=== PATIENT | female | born 1955 | race American Indian/Alaskan Native ===

== ENCOUNTER 2016-04-24 04:32 | Inpatient (IN) | payer OTHER ==
[2016-04-24 05:29] LABS: Basophils % (Auto) 0.3 % (0.0-1.8); Eosinophils % (Auto) 0.9 % (0.0-4.3); Hematocrit 38.4 % (30.3-42.9); Hemoglobin 12.5 gm/dl (10.1-14.3); Mean Corpuscular HGB Conc 33 % (30-34); Mean Corpuscular Volume 80 fl (79-97); Platelet Count 275 K/mm3 (140-440); Red Blood Count 4.82 M/mm3 (3.65-5.03); Red Cell Distribution Width 13.8 % (13.2-15.2); White Blood Count 9.5 K/mm3 (4.5-11.0)
[2016-04-24 05:32] LABS: Mean Corpuscular Hemoglobin 26 pg (28-32)
[2016-04-24 05:48] LABS: Blood Urea Nitrogen 14 mg/dL (7-17); Calcium 8.4 mg/dL (8.4-10.2); Carbon Dioxide 23 mmol/L (22-30); Chloride 103.6 mmol/L (98-107); Glucose 96 mg/dL (65-100); Potassium 3.7 mmol/L (3.6-5.0); Sodium 140 mmol/L (137-145)
[2016-04-24 05:51] LABS: Anion Gap 17 mmol/L
[2016-04-24] MEDS ORDERED: ZOFRAN IV ONE (07:31)
[2016-04-24] MEDS ORDERED: MORPHINE IV ONE (07:31)
[2016-04-24] MEDS ORDERED: ASPIRIN PO ONE (07:31)
--- NOTE | 2016-04-24 07:43 | Emergency Department Report ---
ED Chest Pain HPI - General Chief Complaint: Chest Pain Stated Complaint: CHEST PAIN Time Seen by Provider: 04/24/16 07:18 Source: patient, EMS Mode of arrival: Stretcher Limitations: No Limitations - History of Present Illness Initial Comments: 60-year-old female presents to the emergency department complaining of chest pain. Patient reports the acute onset of midsternal chest pain this morning at approximately 3 AM. Patient states the pain woke her from sleep. Patient describes a sharp pain that does not radiate. Pain is constant but varies in intensity. She reports associated shortness of breath and lightheadedness. She denies diaphoresis or nausea. There are no other complaints. MD Complaint: chest pain -: Sudden, During the night Time: 03:00 Onset: during rest Pain Location: substernal Pain Radiation: none Severity scale (0 -10): 8 Quality: sharp Consistency: constant Improves With: nothing Worsens With: nothing re: dyspnea Treatments Prior to Arrival: none Aspirin use within the Past 7 Days: (0) No - Related Data Home Medications Medication Instructions Recorded Confirmed Last Taken No Known Home Medications [No 04/24/16 04/24/16 Unknown Reported Home Medications] Allergies Allergy/AdvReac Type Severity Reaction Status Date / Time meperidine HCl [From Demerol] Allergy Swelling Verified 04/24/16 05:13 ZONIA score - Zonia Score Age > 65: (0) No Aspirin use within the Past 7 Days: (0) No 3 or more CAD Risk Factors: (0) No 2 or more Angina events in past 24 hrs: (0) No Known CAD with more than 50% Stenosis: (0) No Elevated Cardiac Markers: (0) No ST Deviation Greater than 0.5mm: (0) No ZONIA Score: 0 ED Review of Systems ROS: Stated complaint: CHEST PAIN Other details as noted in HPI Comment: All other systems reviewed and negative Respiratory: shortness of breath Cardiovascular: chest pain, syncope (lightheadedness, no loss of consciousness) ED Past Medical Hx - Past Medical History Previous Medical History?: No - Surgical History Past Surgical History?: Yes Additional Surgical History: hystecrectomy. josé miguel vein ligation remove blood clot. hernia repair - Family History Family history: CAD/LA, cancer, hypertension - Social History Smoking Status: Never Smoker Substance Use Type: Alcohol - Medications Home Medications: Home Medications Medication Instructions Recorded Confirmed Last Taken Type No Known Home Medications [No 04/24/16 04/24/16 Unknown History Reported Home Medications] ED Physical Exam - General Limitations: No Limitations General appearance: alert, in distress (mild distress secondary to pain) - Head Head exam: Present: atraumatic, normocephalic - Eye Eye exam: Present: normal appearance, PERRL, EOMI - ENT ENT exam: Present: normal exam, normal orophraynx, mucous membranes moist - Neck Neck exam: Present: normal inspection, full ROM. Absent: tenderness - Respiratory Respiratory exam: Present: normal lung sounds bilaterally. Absent: respiratory distress, chest wall tenderness - Cardiovascular Cardiovascular Exam: Present: regular rate, normal rhythm, normal heart sounds - GI/Abdominal GI/Abdominal exam: Present: soft, normal bowel sounds. Absent: distended, tenderness - Extremities Exam Extremities exam: Present: normal inspection, full ROM. Absent: tenderness - Back Exam Back exam: Present: normal inspection, full ROM. Absent: tenderness - Neurological Exam Neurological exam: Present: alert, oriented X3. Absent: motor sensory deficit - Skin Skin exam: Present: warm, dry, intact ED Course Vital Signs 04/24/16 04/24/16 04/24/16 04:40 04:44 04:46 Temperature 98.5 F Pulse Rate 89 90 86 Respiratory 18 12 21 Rate Blood Pressure 117/70 O2 Sat by Pulse 99 98 Oximetry 04/24/16 04/24/16 04/24/16 05:01 05:07 05:10 Temperature Pulse Rate 79 70 Respiratory 14 14 18 Rate Blood Pressure 117/63 117/70 O2 Sat by Pulse 97 99 99 Oximetry 04/24/16 04/24/16 04/24/16 05:15 05:30 05:46 Temperature Pulse Rate 88 83 79 Respiratory 14 16 21 Rate Blood Pressure 117/70 116/78 116/77 O2 Sat by Pulse 97 93 Oximetry 04/24/16 04/24/16 04/24/16 06:00 06:16 06:30 Temperature Pulse Rate 91 H 92 H 88 Respiratory 21 14 19 Rate Blood Pressure 157/95 157/95 114/67 O2 Sat by Pulse 98 98 Oximetry 04/24/16 04/24/16 04/24/16 06:46 07:00 07:08 Temperature Pulse Rate 90 78 89 Respiratory 28 H 35 H 19 Rate Blood Pressure 114/67 121/62 121/62 O2 Sat by Pulse 96 95 99 Oximetry 04/24/16 04/24/16 04/24/16 07:10 07:16 07:17 Temperature Pulse Rate 82 77 73 Respiratory 27 H 28 H 35 H Rate Blood Pressure 121/62 121/69 121/69 O2 Sat by Pulse 97 94 100 Oximetry 04/24/16 04/24/16 07:30 08:00 Temperature Pulse Rate 91 H 83 Respiratory 25 H 18 Rate Blood Pressure 119/79 109/70 O2 Sat by Pulse 94 93 Oximetry ED Medical Decision Making - Lab Data Result diagrams: 04/24/16 05:21 04/24/16 05:21 - EKG Data -: EKG Interpreted by Sc EKG shows normal: sinus rhythm, axis Rate: normal - EKG Data When compared to previous EKG there are: previous EKG unavailable Interpretation: LVH (with repolarization abnormality), other (prolonged QT interval) - Medical Decision Making Lab results reviewed and discussed with the patient. Patient reports symptoms are improved with medication. Due to the patient's age and risk factors including obesity and family history, patient is to be admitted by the hospitalist for further cardiac evaluation. - Differential Diagnosis ACS, chest wall pain, GERD, esophageal spasm Critical care attestation.: If time is entered above; I have spent that time in minutes in the direct care of this critically ill patient, excluding procedure time. ED Disposition Clinical Impression: Chest pain Qualifiers: Chest pain type: precordial chest pain Qualified Code(s): R07.2 - Precordial pain Disposition: OP ADMITTED IP TO THIS HOSP Is pt being admited?: Yes Condition: Stable Instructions: Chest Pain (ED) Time of Disposition: 08:32
[2016-04-24] MEDS ORDERED: MORPHINE IV PRN (10:30)
[2016-04-24] MEDS ORDERED: NITROSTAT SL PRN (10:30)
[2016-04-24] MEDS ORDERED: LEXISCAN IV ONE ×2 (10:58→11:02)
[2016-04-24] MEDS ORDERED: SODIUM CHLORIDE FLUSH SYRINGE 10 ML IV PRN (11:00)
--- NOTE | 2016-04-24 12:47 | Treadmill Report ---
NUCLEAR STUDY REASON FOR STUDY: Chest pain. IMAGING PROTOCOL: The patient received 10 mCi of Technetium 99m Tetrofosmin for resting image and 28 mCi of Technetium 99m Tetrofosmin for stress imaging. The imaging for the whole procedure was completed 30-90 minutes following the initial injection of Technetium 99m tetrofosmin. The SPECT imaging in the 180 degree arc was performed in the right anterior oblique projection. Computerized reconstruction of the images was performed for analysis. IMAGING RESULTS: Cavity is dilated, both stress and rest. Distribution radionuclide is normal in the septal, lateral, apical anterior region, but moderately decreased in a moderate sized in the inferior region and inferoapical region, seen on both stress and rest. Gated SPECT, EF 20% with global severe hypokinesis. The patient infused Lexiscan with no EKG changes. SUMMARY: 1. Negative Lexiscan EKG. 2. No significant stress ischemia. 3. Dilated LV cavity with severe LV dysfunction, EF 20% with moderate sized, moderate intensity infarction in inferior, inferoapical region with normal perfusion in the septal, lateral, anterior and anterior apical region. We will clinically correlate. JOB# [id number] JESSE/JORDANA
--- NOTE | 2016-04-24 14:05 | Consultation ---
Addendum entered and electronically signed by YESSICA SPEAR MD 04/24/16 17:48: I have seen and examined the patient and agree with the documentation below. Original Note: History of Present Illness Consult date: 04/24/16 Requesting physician: ALISSON ROSALES Consult reason: chest pain History of present illness: The patient is a 60 year old female who presented with complaints of sudden onset precordial chest pain and shortness of breath that began this morning at 3 :00am. She states that the pain is sharp and had been constant but varies in intensity. She denies any nausea, vomiting or diaphoresis. However, she reports 2-3 pillow orthopnea over the past several years. She admits that she has not seen a doctor in approximately 4 years. Troponin negative x 2. Stress test this morning was negative for reversible ischemia but showed dilated LV cavity, EF 20 %. Echo done this morning revealed dilated cardiomyopathy, EF 20%, grade 2 diastolic dysfunction, severe MR. No previous diagnosis of heart failure or cardiomyopathy. Past History Past Medical History: other (pelvic vein thrombosis ~ 40 years ago) Past Surgical History: hysterectomy, hernia repair, Other (vein ligation ) Social history: (2 children). denies: smoking, alcohol abuse, prescription drug abuse, IV drug use Family history: no significant family history Medications and Allergies Allergies Allergy/AdvReac Type Severity Reaction Status Date / Time meperidine HCl [From Demerol] Allergy Swelling Verified 04/24/16 05:13 Home Medications Medication Instructions Recorded Confirmed Last Taken Type No Known Home Medications [No 04/24/16 04/24/16 Unknown History Reported Home Medications] Active Meds: Active Medications Aspirin (Aspirin) 325 mg PO QDAY LETI Famotidine (Pepcid) 20 mg PO BID LETI Morphine Sulfate (Morphine) 2 mg IV Q5MIN PRN PRN Reason: Chest Pain Nitroglycerin (Nitrostat) 0.4 mg SL Q5M PRN PRN Reason: Chest Pain Sodium Chloride (Sodium Chloride Flush Syringe 10 Ml) 10 ml IV PRN PRN PRN Reason: LINE FLUSH Review of Systems Constitutional: no fever, no chills Ears, nose, mouth and throat: no nasal congestion, no nasal discharge, no sinus pressure Cardiovascular: chest pain, orthopnea, shortness of breath, dyspnea on exertion Respiratory: shortness of breath, dyspnea on exertion, no cough, no congestion, no wheezing Gastrointestinal: no abdominal pain, no nausea, no vomiting, no diarrhea Genitourinary Female: no dysuria, no urgency Musculoskeletal: no neck stiffness, no neck pain, no myalgias Integumentary: no rash, no pruritis Neurological: no parathesias, no numbness, no tingling Endocrine: no cold intolerance, no heat intolerance Hematologic/Lymphatic: no easy bruising, no easy bleeding Allergic/Immunologic: no urticaria, no wheezing Physical Examination Vital Signs Temp Pulse Resp BP Pulse Ox 98.5 F 89 18 117/70 99 04/24/16 04:40 04/24/16 04:40 04/24/16 04:40 04/24/16 04:40 04/24/16 04:40 General appearance: no acute distress, obese HEENT: Positive: PERRL, Normocephaly, Mucus Membranes Moist Neck: Positive: neck supple, trachea midline Cardiac: Positive: Reg Rate and Rhythm, S1/S2 Lungs: Positive: clear to auscultation Neuro: Positive: Grossly Intact Abdomen: Positive: Soft, Active Bowel Sounds. Negative: Tender Skin: Positive: Clear. Negative: Rash Extremities: Present: normal, +1 Edema (bilateral lower legs) Results 04/24/16 05:21 04/24/16 05:21 - Imaging and Cardiology Echo: report reviewed (04/2016: dilated cardiomyopathy, EF 20%, severe MR) EKG: image reviewed EKG interpretations - Telemetry EKG Rhythm: Sinus Rhythm - EKG Sinus rhythms and dysrhythmias: sinus rhythm Chamber hypertrophy or enlargement: left ventricular hypertro Repolarization changes or abnormalities: repolarization abn secondary to ventricular hypertrophy Assessment and Plan Initiate low dose beta fay. Will add ACEI or ARB subsequently if and when BP permits. Will proceed with left heart cath in am for evaluation of cardiomyopathy. Risks, benefits and alternatives were discussed with the patient and she agrees to proceed. - Patient Problems (1) Acute on chronic combined systolic and diastolic heart failure Current Visit: Yes Status: Acute (2) Chest pain Current Visit: Yes Status: Acute Qualifiers: Chest pain type: precordial chest pain Qualified Code(s): R07.2 - Precordial pain (3) Cardiomyopathy Current Visit: Yes Status: Acute (4) Severe mitral regurgitation Current Visit: Yes Status: Acute (5) Obesity Current Visit: Yes Status: Chronic
[2016-04-24] MEDS: PEPCID PO SCH ×2 (14:06→21:33)
--- NOTE | 2016-04-24 14:59 | XRay Report ---
PORTABLE CHEST INDICATION: Heart failure. COMPARISON: None similar. FINDINGS: Portable, frontal chest radiograph demonstrate slight patient rotation to the left with borderline/slight cardiomegaly and somewhat congestive prominence of markings centrally and towards the bases possible. No large pleural effusions or cephalization however. EKG leads. Few bony degenerative changes, including mild thoracic dextroscoliosis. CONCLUSION: Borderline cardiomegaly and slight/early fluid overload possible without overt CHF, as detailed above. Please also correlate clinically and with prior chest imaging, if available. Thank you for the opportunity to participate in this patient's care.
[2016-04-24] MEDS ORDERED: NACL 0.9% 500 ML 500 ML IV SCH (15:00)
--- NOTE | 2016-04-24 15:09 | History and Physical Report ---
History of Present Illness Date of examination: 04/24/16 Date of admission: 04/24/16 08:33 Chief complaint: chest pain this morning about 2 a.m with sob History of present illness: Miss Aguero is a 60 yo F who presented to the ER with left sided chest pain and shortness of breath which started this morning about 2 a.m; she was not sleeping as she said that she was restless; no radiation; pressing in nature; lasted over 1 hour; also sob when she lays down which she said is not new and shw has been sleeping on several pillows for years; no leg swelling; no h/o cardiac disease; cough productive of yellow sputum but that has improved; palpitations Past History Past Medical History: No medical history, other (pelvic vein thrombosis ~ 40 years ago) Past Surgical History: hysterectomy, hernia repair, Other (vein ligation ) Social history: (2 children). denies: smoking, alcohol abuse, prescription drug abuse, IV drug use Family history: CAD, diabetes, hypertension Medications and Allergies Allergies Allergy/AdvReac Type Severity Reaction Status Date / Time meperidine HCl [From Demerol] Allergy Swelling Verified 04/24/16 05:13 Home Medications Medication Instructions Recorded Confirmed Last Taken Type No Known Home Medications [No 04/24/16 04/24/16 Unknown History Reported Home Medications] Active Meds: Active Medications Aspirin (Aspirin) 325 mg PO QDAY LETI Carvedilol (Coreg) 3.125 mg PO BID [facility] Famotidine (Pepcid) 20 mg PO BID [facility] Last Admin: 04/24/16 14:06 Dose: 20 mg Sodium Chloride (Nacl 0.9% 500 Ml) 500 mls @ 50 mls/hr IV DIRECT LETI Stop: 04/25/16 00:59 Morphine Sulfate (Morphine) 2 mg IV Q5MIN PRN PRN Reason: Chest Pain Nitroglycerin (Nitrostat) 0.4 mg SL Q5M PRN PRN Reason: Chest Pain Sodium Chloride (Sodium Chloride Flush Syringe 10 Ml) 10 ml IV PRN PRN PRN Reason: LINE FLUSH Review of Systems All systems: negative Constitutional: no weight loss, no weight gain, no fever, no chills, no sweats, no night sweats Ears, nose, mouth and throat: no ear pain, no ear discharge, no tinnitis, no decreased hearing, no nose pain Breasts: normal Cardiovascular: other (as in the [facility]) Respiratory: cough with sputum, no excessive sputum, no hemoptysis, no shortness of breath, no dyspnea on exertion Gastrointestinal: no abdominal pain, no nausea, no vomiting Genitourinary Female: no dyspareunia, no dysmenorrhea, no pelvic pain, no menorrhagia Menstruation: no currently menstrual, no premenarcheal, no post hysterectomy, no ammenorrhea Musculoskeletal: no neck stiffness, no neck pain, no shooting arm pain Integumentary: no rash, no pruritis, no redness Neurological: no head injury, no transient paralysis, no paralysis, no weakness Psychiatric: no anxiety, no memory loss, no change in sleep habits, no change in libido Endocrine: no cold intolerance, no heat intolerance Hematologic/Lymphatic: no easy bruising, no easy bleeding Allergic/Immunologic: no urticaria, no allergic rhinitis Exam - Constitutional Vitals: Temp Pulse Resp BP Pulse Ox 98.5 F 79 26 H 114/77 97 04/24/16 04:40 04/24/16 11:49 04/24/16 09:00 04/24/16 11:49 04/24/16 09:00 General appearance: Present: no acute distress, well-nourished - EENT Eyes: Present: PERRL, EOM intact. Absent: scleral icterus, conjunctival injection ENT: hearing intact, clear oral mucosa, no oropharyngeal erythema, no poor dentition - Neck Neck: Present: supple, normal ROM. Absent: enlarged thyroid, masses or JVD - Respiratory Respiratory effort: normal Respiratory: bilateral: diminished, rales (bases), negative: rhonchi, wheezing - Cardiovascular Rhythm: regular Heart Sounds: Present: S1 & S2. Absent: gallop - Extremities Extremities: no ischemia, pulses intact, pulses symmetrical, No edema, normal temperature Peripheral Pulses: within normal limits - Abdominal General gastrointestinal: Present: soft, non-tender, non-distended - Rectal Rectal Exam: deferred - Integumentary Integumentary: Present: clear - Musculoskeletal Musculoskeletal: strength equal bilaterally - Psychiatric Psychiatric: appropriate mood/affect, intact judgment & insight - Neurologic Neurologic: CNII-XII intact, moves all extremities Results - Labs CBC & Chem 7: 04/24/16 05:21 04/24/16 05:21 Labs: stress test- no stress ischemia; dilated LV with EF 20 % with moderate sized intensity infarction in the inferior and inferior apical region wiht normal perfusion in the septal; lateral, anterior and anterior apical region - Imaging and Cardiology Chest x-ray: report reviewed (Chest [id number] cardiomegaly and/S early fluid overload possible without overt CHF) Assessment and Plan 1. Atypical chest pain-admit as an inpatient as more than 2 midnights are required for treatment, myocardial infarction ruled out based on negative cardiac enzymes; cardiogram ordered and reviewed. Stress test ordered and reviewed 2. Abnormal stress test-cardiology consult appreciated. Patient is for cardiac catheterization in the morning 3. Newly diagnosed cardiomyopathy with systolic dysfunction with mild acute exacerbation of systolic heart failure-we'll start patient on IV Lasix, will add beta fay and DANIS inhibitor if blood pressure is able to remain stable with diuresis 4. DVT prophylaxis-Lovenox
[2016-04-24] MEDS ORDERED: LASIX IV ONE (15:15)
--- NOTE | 2016-04-24 15:47 | Admit Criteria Form ---
Admission Criteria Documentation: CHEST PAIN Clinical Indications for Admission to Inpatient Care (Place 'X' for any and all applicable criteria): Admission is indicated for chest pain and ANY ONE of the following(1)(2)(3)(4)(5 ): [ ]I. Angina with acute coronary syndrome (Also use Myocardial Infarction or Angina guideline) [ ]II. Hemodynamic instability [X ]III. Angina needing acute intervention as indicated by ALL of the following (11)(12): [ X]a) Unstable angina is present as indicated by angina that is ANY ONE of the following: [X ]i) New onset [ ]ii) Nocturnal [ ]iii) Prolonged at rest [ ]iv) Progressive [X ]b) Angina warrants acute intervention as indicated by ANY ONE of the following: [ ]i) Recurrent angina (e.g, not responding as previously to treatment) [ ]ii) Angina at rest or with low-level activities despite initial medical therapy [ ]iii) New or presumably new ST-segment depression on ECG [ ]iv) Signs or symptoms of heart failure (eg, dyspnea, pulmonary edema) [ ]v) New or worsening mitral regurgitation [ ]vi) Hemodynamic instability [ ]vii) Dangerous arrhythmia (eg, sustained ventricular tachycardia) [ ]viii) History of percutaneous coronary intervention within 6 months [ ]ix) History of coronary artery bypass graft surgery [ ]x) ZONIA risk score of 2 or greater[A] [ ]xi) History of Diabetes(14) [ ]xii) High-risk cardiac ischemia findings on noninvasive testing (e.g, echocardiogram, treadmill testing, nuclear scan) [ ]xiii) Chronic renal insufficiency (ie, estimated GFR less than 60 mL/min/1.732m) [X ]xiv) Left ventricular ejection fraction less than 40% [ ]IV. Evidence of ME (eg, cardiac biomarkers positive, ST-segment elevation on ECG) also use Myocardial Infarction Criteria Form. [ ]V. Pulmonary edema [ ]. Respiratory distress [ ]VII. Chest pain indicative of serious diagnosis other than coronary artery disease (eg, aortic dissection) [ ]VIII. Contraindications and/or Inappropriate clinical situations for Observational Care in patients with Chest Pain, when ANY ONE of the following is required: [ ]a) Patient with risk factor for pulmonary embolism, acute coronary syndrome and myocardial infarction (18) [ ]b) Patient with Pulmonary embolism require an average LOS of 4.3 days, therefore emergency department observation management is inappropriate 18,23 [ ]c) Painful condition/s in the elderly, have the highest rate of recidivism after emergency department observation management (10.8%) 20,21,22 [ ]d) Elevated cardiac biomarker requires intensive and exhaustive care (19) [ ]IX. General contraindications and/or Inappropriate clinical situations for Observational Care in patients with Chest Pain, when ANY ONE of the following is required: [ ]a) Prediction of prolongation of LOS based on ANY ONE of the following may be considered as a contraindication for observational care 2, 3, 4, 5, 6, 7, 8, 9, 10, 11 [ ]i) Age > 65 yrs. [ ]ii) Patient arriving by ambulance [ ]iii) Patient with high acuity [ ]iv) Patient requiring vital sign monitoring [ ]v) Patient on IV medication [ ]b) Systolic blood pressures 180mmHg 3,12 [ ]c) Patient with altered mental status including delirium and other alteration of consciousness, (3) [ ]d) Patient whose discharge disposition will be to a [facility] home or rehabilitation home should not be managed in Emergency Department Observation Unit. CMS rule requires 3 days hospital stay before such placement. 3,13 [ ]e) Patient with failure to thrive due to broad array of etiologies 3,16,17 [ ]f) Inability to ambulate 3,14 Extended stay beyond goal length of stay may be needed for (1)(28): [ ]a) Specific condition diagnosed after evaluation (eg, pulmonary embolism, aortic dissection) [ ]b) Unstable angina [ ]c) Continued suspicion of acute coronary syndrome with inability to complete needed cardiac evaluation (eg, patient clinically unable to undergo stress testing) [ ]d) Myocardial infarction (Contents from ANGINA and CHEST PAIN clinical indications for admission to inpatient care have been integrated in this form) The original [employer] content created by [employer] has been revised. The portions of the content which have been revised are identified through the use of italic text or in bold, and [facility] [employer] has neither reviewed nor approved the modified material. All other unmodified content is copyright [employer]. Please see references footnoted in the original [facility] [employer] edition 2016 Admission Criteria Met: Yes
--- NOTE | 2016-04-24 17:45 | Echocardiography Report ---
Transthoracic Echocardiogram Indication: Chest pain BP: 111/74 Conclusions *There is severe mitral regurgitation. *There is mild tricuspid regurgitation. *There is trace aortic regurgitation. *The left ventricular chamber size is moderately dilated. *Mild concentric left ventricular hypertrophy is observed. *Global left ventricular systolic function is severely decreased. *The estimated ejection fraction is 20%. *The left ventricular diastolic filling pattern is consistent with pseudonormalization. *The right ventricular systolic pressure is calculated at 32 mmHg. Findings Left Ventricle: The left ventricular chamber size is moderately dilated. Mild concentric left ventricular hypertrophy is observed. Severe global hypokinesis of the left ventricle is observed. Global left ventricular systolic function is severely decreased. The estimated ejection fraction is 20-25%. Abnormal left ventricular diastolic function is observed. The left ventricular diastolic filling pattern is consistent with pseudonormalization. Left Atrium: The left atrium is normal in size with no visual thrombus identified. The left atrium is mildly dilated. Right Ventricle: The right ventricular chamber size and systolic function are within normal limits. Right Atrium: The right atrium appears normal. The interatrial septum appears normal. Aortic Valve: The aortic valve structure is normal. There is trace of aortic regurgitation. There is no evidence of aortic stenosis. Mitral Valve: The mitral valve leaflets appear normal. The mitral valve leaflets are mildly thickened. There is severe mitral regurgitation. There is no evidence of mitral stenosis. Tricuspid Valve: The tricuspid valve leaflets are normal. There is mild tricuspid regurgitation. The right ventricular systolic pressure is calculated at 32 mmHg. There is no tricuspid stenosis. Pulmonic Valve: The pulmonic valve appears normal. There is trace pulmonic regurgitation. There is no pulmonic stenosis. Pericardium: There is no pericardial effusion. Aorta: There is no dilatation of the ascending aorta. There is no dilatation of the aortic root. Venous: The inferior vena cava appears normal in size. Measurements Chambers MM Name Value Normal Range Ao root diameter (MM) 3.1 cm (2 - 3.7) LA dimension (AP) MM 3.8 cm (1.9 - 4) LA:Ao ratio (MM) 1.23 ratio - AV cusp separation (MM) 1.5 cm (1.5 - 2.6) Chambers 2D Name Value Normal Range RVIDd (AP) 2D 2.53 cm (0.9 - 2.6) IVSd (2D) 1.23 cm (0.6 - 1.1) LVPWd (2D) 1.23 cm (0.6 - 1.1) IVS:LVPW ratio (2D) 1 ratio - LVIDd (2D) 6.26 cm (3.7 - 5.6) LVIDs (2D) 5.79 cm (2 - 3.8) LV FS (Teichholz) (2D) 7.51 % - LV FS (cube) (2D) 7.51 % - EF Teichholz (2D) 16.2 % - LA dimension (AP) 2D 4 cm (1.9 - 4) Volumes/Mass Name Value Normal Range LA ESV SP 4CH (MOD) 82 ml - LA ESV SP 2CH (MOD) 72 ml - LA ESV BP (MOD) 78 ml - LA ESV BP (MOD) index 36.6 ml/m2 - LV EDV SP 4CH (MOD) 150 ml - LV ESV SP 4CH (MOD) 111 ml - EF SP 4CH (MOD) 26 % - LV EDV SP 2CH (MOD) 128 ml - LV ESV SP 2CH (MOD) 108 ml - EF SP 2CH (MOD) 15 % - LV EDV BP 138 ml - LV ESV BP 112 ml - BP EF (MOD) 19 % - Diastolic/Systolic Function Name Value Normal Range MV E-wave Vmax 1.13 m/sec - MV deceleration time 183 msec - MV A-wave Vmax 0.73 m/sec - MV E:A ratio 1.6 ratio - LV septal e' Vmax 0.05 m/sec - LV lateral e' Vmax 0.08 m/sec - LV E:e' septal ratio 22.6 ratio - LV E:e' lateral ratio 14.9 ratio - Aortic Valve Name Value Normal Range AV VTI 28.9 cm - AV mean gradient 7 mmHg - LVOT diameter 2 cm - LVOT VTI 29.9 cm - LVOT mean gradient 6 mmHg - SV LVOT 94 ml - EDGAR (continuity VTI) 3.25 cm2 - Mitral Valve Name Value Normal Range MV PHT 41 msec - MR Vmax 4.96 m/sec - MR VTI 161 cm - MR volume (PISA) 24 ml - MR flow (PISA) 73 ml/sec - MR ERO 0.15 cm2 - MR PISA radius 0.7 cm - MR alias Vmax 23.7 cm/sec - MVA (PHT) 5.37 cm2 - Tricuspid Valve Name Value Normal Range TR Vmax 2.71 m/sec - TR peak gradient 29 mmHg - RAP 3 mmHg - RVSP 32 mmHg - Pulmonic Valve/Qp:Qs Name Value Normal Range PV Vmax 1.13 m/sec - PV peak gradient 5 mmHg - NJ end-diastolic Vmax 1.51 m/sec - PV acceleration time 127 msec -
[2016-04-24] MEDS: TYLENOL PO PRN (21:33)
[2016-04-24] MEDS ORDERED: COREG PO SCH (22:00)
[2016-04-25] MEDS ORDERED: ASPIRIN PO ONE (06:00)
[2016-04-25 06:05] LABS: INR 0.99 (0.87-1.13)
[2016-04-25 06:10] LABS: BUN/Creatinine Ratio 18.75; Blood Urea Nitrogen 15 mg/dL (7-17); Calcium 8.4 mg/dL (8.4-10.2); Carbon Dioxide 26 mmol/L (22-30); Glucose 88 mg/dL (65-100)
[2016-04-25 06:11] LABS: Chloride 104.5 mmol/L (98-107); Potassium 3.9 mmol/L (3.6-5.0); Sodium 141 mmol/L (137-145)
[2016-04-25 06:12] LABS: Anion Gap 14 mmol/L
[2016-04-25] MEDS ORDERED: NACL 0.9% 500 ML 500 ML IV ONE (06:15)
[2016-04-25] MEDS: TYLENOL PO PRN (06:20)
[2016-04-25] MEDS ORDERED: HEPARIN/NS 5000 UNIT/500ML(CATH LAB) 1,000 ML IR ONE (08:11)
[2016-04-25] MEDS ORDERED: NITROGLYCERIN SYRINGE 3 ML ONE (08:12)
[2016-04-25] MEDS ORDERED: NACL 0.9% 500 ML 500 ML ONE (08:13)
[2016-04-25] MEDS: VERSED ONE ×2 (08:25→20:33)
[2016-04-25] MEDS: SUBLIMAZE ONE ×2 (08:25→20:33)
[2016-04-25] MEDS: HEPARIN 10,000 UNITS/10 ML ONE ×2 (08:26→08:40)
[2016-04-25] MEDS: XYLOCAINE 2% INFILTRATI ONE ×2 (08:26→08:40)
[2016-04-25] MEDS: CALAN ONE ×2 (08:26→08:40)
[2016-04-25] MEDS ORDERED: LASIX ONE (08:45)
--- NOTE | 2016-04-25 09:12 | Progress Note ---
Assessment and Plan pt cad is out of portion of lv dysfunction, treat medically distal rca lesion and add daily lasix 40mg and aldactone 25mg and if pt sob has improved and maybe discharged from [facility] point of view this pm - Patient Problems (1) Acute on chronic combined systolic and diastolic heart failure Current Visit: Yes Status: Acute (2) Cardiomyopathy Current Visit: Yes Status: Acute (3) Chest pain Current Visit: Yes Status: Resolved Qualifiers: Chest pain type: precordial chest pain Qualified Code(s): R07.2 - Precordial pain (4) Severe mitral regurgitation Current Visit: Yes Status: Acute (5) Obesity Current Visit: Yes Status: Chronic (6) CAD (coronary artery disease) Current Visit: Yes Status: Acute Subjective Date of service: 04/25/16 Principal diagnosis: chf Interval history: pt states sob with exertion last one month and today chest pain free Objective Vital Signs Temp Pulse Pulse Resp BP BP Pulse Ox 04/25/16 07:32 97.4 F L 76 20 86/44 97 04/25/16 07:07 99 04/25/16 06:16 100/50 04/25/16 05:55 80 04/25/16 04:40 98.9 F 86 20 103/54 99 04/25/16 04:30 98.6 F 80 20 112/64 96 04/25/16 00:25 98.6 F 80 20 112/64 96 04/24/16 21:46 96 04/24/16 21:34 80 94/51 04/24/16 20:58 98.7 F 84 20 108/57 100 04/24/16 19:14 98 H 04/24/16 17:43 80 22 04/24/16 17:03 97.9 F 77 16 96/55 98 04/24/16 11:49 79 114/77 04/24/16 11:48 82 121/81 04/24/16 11:47 86 112/78 04/24/16 11:46 94 H 105/69 04/24/16 11:45 84 127/111 04/24/16 11:12 76 104/69 - Physical Examination General: No Apparent Distress HEENT: Positive: PERRL, Normocephaly, Mucus Membranes Moist Neck: Positive: neck supple, trachea midline Cardiac: Positive: Reg Rate and Rhythm Lungs: Positive: clear to auscultation Neuro: Positive: Grossly Intact Abdomen: Positive: Soft, Active Bowel Sounds. Negative: Tender Skin: Positive: Clear. Negative: Rash Extremities: Present: normal. Absent: edema - Labs and Meds Coagulation 04/25/16 Range/Units 04:54 PT 13.0 (12.2-14.9) Sec. INR 0.99 (0.87-1.13) Comprehensive Metabolic Panel 04/25/16 Range/Units 04:54 Sodium 141 (137-145) mmol/L Potassium 3.9 (3.6-5.0) mmol/L Chloride 104.5 (98-107) mmol/L Carbon Dioxide 26 (22-30) mmol/L BUN 15 (7-17) mg/dL Creatinine 0.8 (0.7-1.2) mg/dL Glucose 88 (65-100) mg/dL Calcium 8.4 (8.4-10.2) mg/dL - Imaging and Cardiology EKG: image reviewed Echo: report reviewed (04/2016: dilated cardiomyopathy, EF 20%, severe MR) Cardiac cath: report reviewed (lt main patent, lad patent, lcx patent, rca distal 80% and ef 15%) - Telemetry EKG Rhythm: Sinus Rhythm - EKG Sinus rhythms and dysrhythmias: sinus rhythm Chamber hypertrophy or enlargement: left ventricular hypertro Repolarization changes or abnormalities: repolarization abn secondary to ventricular hypertrophy
[2016-04-25] MEDS ORDERED: ZESTRIL PO SCH (10:00)
[2016-04-25] MEDS ORDERED: LASIX IV SCH (10:00)
[2016-04-25] MEDS ORDERED: LASIX PO SCH (10:00)
[2016-04-25] MEDS ORDERED: ASPIRIN PO SCH (10:00)
[2016-04-25] MEDS: ALDACTONE PO SCH (10:42)
[2016-04-25] MEDS: PEPCID PO SCH ×2 (10:43→21:08)
--- NOTE | 2016-04-25 11:52 | Discharge Summary ---
Providers - Providers Date of Admission: 04/24/16 08:33 Date of discharge: 04/25/16 Attending physician: KIT MENDOZA 04/24/16 Consult to Cardiac Rehabilitation [CONS] Routine Reason For Exam: Phase I 04/24/16 08:57 Consult to Physician [CONS] Routine Consulting Provider: [facility] Reason For Exam: chest pain Place consult to:: [facility] Notified:: tammy 04/25/16 09:08 Consult to Cardiac Rehabilitation [CONS] Routine Reason For Exam: Cardiac Rehab Evaluation Primary care physician: [employer]ELOPER Hospitalization Condition: Stable Disposition: STILL A PATIENT Core Measure Documentation - Palliative Care Palliative Care/ Comfort Measures: Not Applicable - Core Measures Any of the following diagnoses?: heart failure - Heart Failure Discharge Requirements DANIS/ARB for LVSD if EF <40%: No Reason for no DANIS/ARB: Hypotension Beta fay at discharge: No Reason for no beta fay on DC: Hypotension Exam - Constitutional Vitals: Temp Pulse Resp BP Pulse Ox 97.2 F L 86 20 124/78 97 04/25/16 11:21 04/25/16 11:21 04/25/16 11:21 04/25/16 11:21 04/25/16 11:21 General appearance: Present: no acute distress, well-nourished - EENT Eyes: Present: PERRL, EOM intact. Absent: scleral icterus, conjunctival injection ENT: hearing intact, clear oral mucosa, no oropharyngeal erythema, no poor dentition - Neck Neck: Present: supple, normal ROM. Absent: enlarged thyroid, masses or JVD - Respiratory Respiratory effort: normal Respiratory: negative: diminished, rales, rhonchi, wheezing - Cardiovascular Rhythm: regular Heart Sounds: Present: S1 & S2. Absent: gallop - Extremities Extremities: no ischemia, pulses intact, pulses symmetrical, No edema Peripheral Pulses: within normal limits - Abdominal General gastrointestinal: Present: soft, non-tender, non-distended - Rectal Rectal Exam: deferred - Integumentary Integumentary: Present: clear - Musculoskeletal Musculoskeletal: strength equal bilaterally - Neurologic Neurologic: CNII-XII intact, moves all extremities Plan Activity: no restrictions Diet: low salt Special Instructions: restrict fluid intake to (1.5 L) Follow up with: CAYLA PEREZ MD [Primary Care Provider] - 3-5 Days CELINE RIOS MD [Staff Physician] - 7 Days Prescriptions: Aspirin [Aspirin TAB] 325 mg PO QDAY #30 tablet Atorvastatin Calcium [Lipitor] 40 mg PO QHS #30 tab Furosemide [Lasix TAB] 40 mg PO QDAY #30 tablet Nitroglycerin [Nitrostat] 0.4 mg SL Q5M PRN #30 tablet PRN Reason: Chest Pain Spironolactone [Aldactone] 25 mg PO QDAY #30 tablet
--- NOTE | 2016-04-25 12:29 | Progress Note ---
Assessment and Plan Assessment and plan: 1. Newly diagnosed cardiomyopathy with systolic dysfunction with mild acute exacerbation of systolic heart failure-with persistent dyspnea; cont supplemental oxygen;cont IV lasix; unable to add beta fay and DANIS inhibitor due to low BP; aldactone 25 mg daily as per cardiology; eval for home oxygen 2. CAD with abn stress test- post cardiac catherization- asa; statin; no beta fay due to hypotension 3. DVT prophylaxis-Lovenox History Interval history: f.u newly diagnosed chf Patient seen at the bedside; had cardiac catherization this morning; has sob on minimal exertion e.g walking to the bathroom Hospitalist Physical - Constitutional Vitals: Temp Pulse Resp BP Pulse Ox 97.2 F L 76 20 124/78 97 04/25/16 11:21 04/25/16 12:19 04/25/16 12:12 04/25/16 11:21 04/25/16 11:21 General appearance: Present: no acute distress (on nc oxygen), well-nourished - EENT Eyes: Present: PERRL, EOM intact. Absent: scleral icterus, conjunctival injection ENT: hearing intact, clear oral mucosa, no oropharyngeal erythema, no poor dentition - Neck Neck: Present: supple, normal ROM. Absent: enlarged thyroid, masses or JVD - Respiratory Respiratory effort: normal Respiratory: bilateral: diminished, negative: rales, rhonchi, wheezing - Cardiovascular Rhythm: regular Heart Sounds: Present: S1 & S2. Absent: gallop - Extremities Extremities: no ischemia, pulses intact, pulses symmetrical, No edema Peripheral Pulses: within normal limits - Abdominal General gastrointestinal: soft, non-tender, non-distended - Integumentary Integumentary: Present: clear - Psychiatric Psychiatric: appropriate mood/affect, intact judgment & insight - Neurologic Neurologic: CNII-XII intact, moves all extremities Results - Labs CBC & Chem 7: 04/24/16 05:21 04/25/16 04:54 Labs: Laboratory Last Values WBC 9.5 K/mm3 (4.5-11.0) 04/24/16 05:21 RBC 4.82 M/mm3 (3.65-5.03) 04/24/16 05:21 Hgb 12.5 gm/dl (10.1-14.3) 04/24/16 05:21 Hct 38.4 % (30.3-42.9) 04/24/16 05:21 MCV 80 fl (79-97) 04/24/16 05:21 MCH 26 pg (28-32) L 04/24/16 05:21 MCHC 33 % (30-34) 04/24/16 05:21 RDW 13.8 % (13.2-15.2) 04/24/16 05:21 Plt Count 275 K/mm3 (140-440) 04/24/16 05:21 Lymph % (Auto) 29.4 % (13.4-35.0) 04/24/16 05:21 [place] % (Auto) 6.9 % (0.0-7.3) 04/24/16 05:21 Eos % (Auto) 0.9 % (0.0-4.3) 04/24/16 05:21 Baso % (Auto) 0.3 % (0.0-1.8) 04/24/16 05:21 Lymph # 2.8 K/mm3 (1.2-5.4) 04/24/16 05:21 [place] # 0.7 K/mm3 (0.0-0.8) 04/24/16 05:21 Eos # 0.1 K/mm3 (0.0-0.4) 04/24/16 05:21 Baso # 0.0 K/mm3 (0.0-0.1) 04/24/16 05:21 Seg Neutrophils % 62.5 % (40.0-70.0) 04/24/16 05:21 Seg Neutrophils # 5.9 K/mm3 (1.8-7.7) 04/24/16 05:21 PT 13.0 Sec. (12.2-14.9) 04/25/16 04:54 INR 0.99 (0.87-1.13) 04/25/16 04:54 Sodium 141 mmol/L (137-145) 04/25/16 04:54 Potassium 3.9 mmol/L (3.6-5.0) 04/25/16 04:54 Chloride 104.5 mmol/L (98-107) 04/25/16 04:54 Carbon Dioxide 26 mmol/L (22-30) 04/25/16 04:54 Anion Gap 14 mmol/L 04/25/16 04:54 BUN 15 mg/dL (7-17) 04/25/16 04:54 Creatinine 0.8 mg/dL (0.7-1.2) 04/25/16 04:54 Estimated GFR > 60 ml/min 04/25/16 04:54 BUN/Creatinine Ratio 18.75 % 04/25/16 04:54 Glucose 88 mg/dL (65-100) 04/25/16 04:54 Calcium 8.4 mg/dL (8.4-10.2) 04/25/16 04:54 Troponin T < 0.010 ng/mL (0.00-0.029) 04/24/16 13:22 NT-Pro-B Natriuret Pep 2210 pg/mL (0-900) H 04/24/16 08:05 Triglycerides 112 mg/dL (2-149) 04/24/16 08:05 Cholesterol 185 mg/dL (50-199) 04/24/16 08:05 LDL Cholesterol Direct 121 mg/dL (50-130) 04/24/16 08:05 HDL Cholesterol 42 mg/dL (40-59) 04/24/16 08:05 Cholesterol/HDL Ratio 4.40 % 04/24/16 08:05
[2016-04-25] MEDS: LASIX IV SCH (12:48)
--- NOTE | 2016-04-25 15:34 | Cardiac Catherization Report ---
LEFT HEART CATHETERIZATION CLINICAL INFORMATION: This is a 60-year-old female with no past medical history as per the patient, but had elevated hypertension. Stress test showed severe LV dysfunction with fixed inferior defect. An echocardiogram showed severe LV dysfunction, is here for her left heart catheterization for cardiomyopathy. Left heart cath performed via the right radial artery. Normal bette test sterile technique, local anesthesia, 5-Ecuadorean radial sheath inserted. Left system engaged with a JL3.5 catheter. FINDINGS: Left main is a large caliber vessel. It is patent with mild luminal irregularities, bifurcates to a large LAD that is patent with mild luminal irregularities. Diagonal 1 is a medium caliber vessel that is patent. Circumflex and AV groove is a large caliber vessel that is patent. OM1 and OM2 are medium caliber vessels that are patent with mild luminal irregularities and moderate tortuosity. Circumflex and the distal AV groove is a medium caliber vessel, is patent. RCA engaged with JR4 catheter, it is a dominant vessel, large caliber from proximally to mid is patent, distal bifurcation has a focal 80% lesion. PLV is small patent vessel, PDA is small to medium cailber vessel that has approximately 50% lesion. LV gram done in the LITHUANIAN and CABRERA shows severe LV dysfunction, LV dilated, LVEDP of 40-45 mmHg, LV is ____. No gradient across the aortic valve. EF is approximately 15% to 20%. A 5-Ecuadorean catheter was all taken over a guidewire, 5-Ecuadorean radial sheath was discontinued. Radial dressing applied. No hematoma, no bleeding present. SUMMARY: 1. Severe LV dysfunction. The patient has a distal RCA lesion, bifurcating lesion. The patient's LV dysfunction is out of proportion to coronary artery disease. The patient's left main, LAD and circumflex, OM1 and 2 are patent. 2. We will treat the patient for nonischemic cardiomyopathy at this time. Once the patient's LV function has improved and if sympotmatic we will consider PCI of the distal RCA going to the PDA. 3. The patient will receive 40 of Lasix IV. The patient should be on Lasix 40 daily, Aldactone 25, DANIS and beta blockers. The patient was explained the results in detail. JOB# [id number] JESSE/JORDANA DAMIAN
[2016-04-25] MEDS: ROBITUSSIN PO PRN (22:20)
[2016-04-26] MEDS: ROBITUSSIN PO PRN ×2 (05:33→21:18)
[2016-04-26 06:40] LABS: BUN/Creatinine Ratio 16.25; Blood Urea Nitrogen 13 mg/dL (7-17); Calcium 8.5 mg/dL (8.4-10.2); Carbon Dioxide 26 mmol/L (22-30); Glucose 83 mg/dL (65-100)
[2016-04-26 06:41] LABS: Anion Gap 15 mmol/L; Potassium 4.1 mmol/L (3.6-5.0); Sodium 140 mmol/L (137-145)
[2016-04-26] MEDS ORDERED: DULCOLAX PR ONE (09:22)
[2016-04-26] MEDS: PEPCID PO SCH ×2 (09:30→21:18)
[2016-04-26] MEDS: ASPIRIN PO SCH (09:30)
[2016-04-26] MEDS: ALDACTONE PO SCH (09:31)
[2016-04-26] MEDS: LASIX IV SCH (09:31)
--- NOTE | 2016-04-26 11:35 | Progress Note ---
Addendum entered and electronically signed by YESSICA SPEAR MD 04/26/16 12:23: I have seen and examined the patient and agree with the documentation below. Original Note: Assessment and Plan Obtain orthostatics. Obtain chest CTA to r/o PE. - Patient Problems (1) Acute on chronic combined systolic and diastolic heart failure Current Visit: Yes Status: Acute (2) Hypotension Current Visit: Yes Status: Acute (3) Chest pain Current Visit: Yes Status: Resolved Qualifiers: Chest pain type: precordial chest pain Qualified Code(s): R07.2 - Precordial pain (4) Cardiomyopathy Current Visit: Yes Status: Chronic (5) CAD (coronary artery disease) Current Visit: Yes Status: Chronic (6) Severe mitral regurgitation Current Visit: Yes Status: Chronic (7) Obesity Current Visit: Yes Status: Chronic Subjective Date of service: 04/26/16 Principal diagnosis: acute on chronic systolic heart failure Interval history: The patient is resting in bed. She remains short of breath with minimal exertion. Sinus rhythm on the monitor. Objective Last Vital Signs Temp 97.3 F L 04/26/16 11:26 Pulse 73 04/26/16 11:26 Resp 20 04/26/16 11:26 BP 99/54 04/26/16 11:26 Pulse Ox 98 04/26/16 11:26 - Physical Examination General: No Apparent Distress HEENT: Positive: PERRL, Normocephaly, Mucus Membranes Moist Neck: Positive: neck supple, trachea midline Cardiac: Positive: Reg Rate and Rhythm, S1/S2 Lungs: Positive: clear to auscultation Neuro: Positive: Grossly Intact Abdomen: Positive: Soft, Active Bowel Sounds. Negative: Tender Skin: Positive: Clear. Negative: Rash Extremities: Present: normal. Absent: edema - Labs and Meds Comprehensive Metabolic Panel 04/26/16 Range/Units 04:59 Sodium 140 (137-145) mmol/L Potassium 4.1 (3.6-5.0) mmol/L Chloride 103.0 (98-107) mmol/L Carbon Dioxide 26 (22-30) mmol/L BUN 13 (7-17) mg/dL Creatinine 0.8 (0.7-1.2) mg/dL Glucose 83 (65-100) mg/dL Calcium 8.5 (8.4-10.2) mg/dL - Imaging and Cardiology EKG: image reviewed Echo: report reviewed (04/2016: dilated cardiomyopathy, EF 20%, severe MR) Cardiac cath: report reviewed (lt main patent, lad patent, lcx patent, rca distal 80% and ef 15%) - Telemetry EKG Rhythm: Sinus Rhythm - EKG Sinus rhythms and dysrhythmias: sinus rhythm Chamber hypertrophy or enlargement: left ventricular hypertro Repolarization changes or abnormalities: repolarization abn secondary to ventricular hypertrophy
[2016-04-26] MEDS ORDERED: PREVNAR 13 IM ONE ×2 (12:00→14:00)
[2016-04-26] MEDS ORDERED: FLUARIX QUAD 2016-2017(36 MOS+) IM ONE (12:00)
--- NOTE | 2016-04-26 16:32 | Progress Note ---
Assessment and Plan Assessment and plan: 1. Newly diagnosed cardiomyopathy with systolic dysfunction with mild acute exacerbation of systolic heart failure-with persistent dyspnea; cont supplemental oxygen;discontinue IV lasix due to hypotension unable to add beta fay and DANIS inhibitor due to low BP; hold aldactone 25 mg daily due to 2. hypotension; 2.Acute hypoxic resp failure - cotn supplemental oxygen; will get CTA chest to r/o PE; cotn manx as above 3. Hypotension- will hold lasix and aldactone; monitor BP 4. CAD with abn stress test- post cardiac catherization- asa; statin; no beta fay due to hypotension 5. DVT prophylaxis-Lovenox History Interval history: f.u newly diagnosed chf Patient seen at the bedside; remains short of breath on minimal exertion; qualified for home oxygen Hospitalist Physical - Constitutional Vitals: Temp Pulse Resp BP Pulse Ox 97.3 F L 73 20 99/54 98 04/26/16 11:26 04/26/16 11:26 04/26/16 11:26 04/26/16 11:26 04/26/16 11:26 General appearance: Present: no acute distress (on nc oxygen), well-nourished - EENT Eyes: Present: PERRL, EOM intact. Absent: scleral icterus ENT: hearing intact, clear oral mucosa, no oropharyngeal erythema, no poor dentition - Neck Neck: Present: supple, normal ROM. Absent: enlarged thyroid, masses or JVD - Respiratory Respiratory effort: normal Respiratory: bilateral: diminished, negative: rales, rhonchi, wheezing - Cardiovascular Rhythm: regular Heart Sounds: Present: S1 & S2. Absent: gallop - Extremities Extremities: no ischemia, pulses intact, pulses symmetrical, No edema Peripheral Pulses: within normal limits - Abdominal General gastrointestinal: soft, non-tender, non-distended, normal bowel sounds - Integumentary Integumentary: Present: clear - Psychiatric Psychiatric: appropriate mood/affect, intact judgment & insight, cooperative - Neurologic Neurologic: CNII-XII intact, moves all extremities Results - Labs CBC & Chem 7: 04/24/16 05:21 04/26/16 04:59 Labs: Laboratory Last Values WBC 9.5 K/mm3 (4.5-11.0) 04/24/16 05:21 RBC 4.82 M/mm3 (3.65-5.03) 04/24/16 05:21 Hgb 12.5 gm/dl (10.1-14.3) 04/24/16 05:21 Hct 38.4 % (30.3-42.9) 04/24/16 05:21 MCV 80 fl (79-97) 04/24/16 05:21 MCH 26 pg (28-32) L 04/24/16 05:21 MCHC 33 % (30-34) 04/24/16 05:21 RDW 13.8 % (13.2-15.2) 04/24/16 05:21 Plt Count 275 K/mm3 (140-440) 04/24/16 05:21 Lymph % (Auto) 29.4 % (13.4-35.0) 04/24/16 05:21 [place] % (Auto) 6.9 % (0.0-7.3) 04/24/16 05:21 Eos % (Auto) 0.9 % (0.0-4.3) 04/24/16 05:21 Baso % (Auto) 0.3 % (0.0-1.8) 04/24/16 05:21 Lymph # 2.8 K/mm3 (1.2-5.4) 04/24/16 05:21 [place] # 0.7 K/mm3 (0.0-0.8) 04/24/16 05:21 Eos # 0.1 K/mm3 (0.0-0.4) 04/24/16 05:21 Baso # 0.0 K/mm3 (0.0-0.1) 04/24/16 05:21 Seg Neutrophils % 62.5 % (40.0-70.0) 04/24/16 05:21 Seg Neutrophils # 5.9 K/mm3 (1.8-7.7) 04/24/16 05:21 PT 13.0 Sec. (12.2-14.9) 04/25/16 04:54 INR 0.99 (0.87-1.13) 04/25/16 04:54 Sodium 140 mmol/L (137-145) 04/26/16 04:59 Potassium 4.1 mmol/L (3.6-5.0) 04/26/16 04:59 Chloride 103.0 mmol/L (98-107) 04/26/16 04:59 Carbon Dioxide 26 mmol/L (22-30) 04/26/16 04:59 Anion Gap 15 mmol/L 04/26/16 04:59 BUN 13 mg/dL (7-17) 04/26/16 04:59 Creatinine 0.8 mg/dL (0.7-1.2) 04/26/16 04:59 Estimated GFR > 60 ml/min 04/26/16 04:59 BUN/Creatinine Ratio 16.25 % 04/26/16 04:59 Glucose 83 mg/dL (65-100) 04/26/16 04:59 Calcium 8.5 mg/dL (8.4-10.2) 04/26/16 04:59 Troponin T < 0.010 ng/mL (0.00-0.029) 04/24/16 13:22 NT-Pro-B Natriuret Pep 2210 pg/mL (0-900) H 04/24/16 08:05 Triglycerides 112 mg/dL (2-149) 04/24/16 08:05 Cholesterol 185 mg/dL (50-199) 04/24/16 08:05 LDL Cholesterol Direct 121 mg/dL (50-130) 04/24/16 08:05 HDL Cholesterol 42 mg/dL (40-59) 04/24/16 08:05 Cholesterol/HDL Ratio 4.40 % 04/24/16 08:05
[2016-04-26] MEDS ORDERED: NACL ONE (16:36)
--- NOTE | 2016-04-26 18:14 | Cat Scan Report ---
FINAL REPORT EXAM: CT CHEST W CON HISTORY: shortness of breath TECHNIQUE: Standard enhanced CT of the chest at 2.5 millimeter axial increments. Coronal and sagittal reconstruction was also obtained. PRIORS: None. FINDINGS: There is a tiny left pleural effusion. The lung parenchyma are expanded and clear with no evidence for parenchymal nodules, infiltrates, vascular congestion, or pneumothorax. There is the gaseous distention of the upper half of the esophagus without a definite etiology. No evidence for mass or wall thickening is seen in the midesophagus. There is no evidence for mediastinal, hilar, or axillary adenopathy. Mediastinal silhouette is normal. The trachea is midline. Cardiovascular structures are within normal limits. Cardiac size and aorta are normal. No evidence for pulmonary embolism is seen although the exam was not performed as a pulmonary embolism protocol. Images through the lung bases include upper abdomen which show a small rounded 1.3 cm cyst in the upper pole left kidney with focal areas of cortical thinning in the upper pole left kidney related to scarring. Bony structures show no focal abnormalities. No evidence for bony fracture is seen. There is mild dextroscoliosis of the thoracic spine. IMPRESSION: 1. Tiny left pleural effusion 2. Gaseous distention of the upper half of the esophagus of uncertain etiology. 3. Small cyst in the upper pole of the left kidney with areas of focal cortical thinning also noted.
[2016-04-27] MEDS: TYLENOL PO PRN (03:00)
[2016-04-27 06:04] LABS: BUN/Creatinine Ratio 17.14; Blood Urea Nitrogen 12 mg/dL (7-17); Calcium 8.7 mg/dL (8.4-10.2); Carbon Dioxide 23 mmol/L (22-30); Chloride 103.4 mmol/L (98-107); Glucose 92 mg/dL (65-100); Potassium 3.8 mmol/L (3.6-5.0); Sodium 141 mmol/L (137-145)
[2016-04-27 06:08] LABS: Anion Gap 18 mmol/L
--- NOTE | 2016-04-27 09:11 | XRay Report ---
Portable supine abdomen: There is contrast residual in the upper urinary tracts as well as the urinary bladder. No evidence of hydronephrosis. The abdominal gas pattern is unremarkable. No soft tissue mass identified. No significant bony changes. Monitor leads over the abdomen and chest. Impression: No abdominal pathology identified.
[2016-04-27] MEDS: ALDACTONE PO SCH (09:18)
[2016-04-27] MEDS: ASPIRIN PO SCH (09:18)
[2016-04-27] MEDS: PEPCID PO SCH ×2 (09:18→21:39)
[2016-04-27] MEDS: ROBITUSSIN PO PRN ×2 (09:24→21:39)
[2016-04-27] MEDS ORDERED: LASIX PO SCH (10:00)
--- NOTE | 2016-04-27 11:07 | Progress Note ---
Addendum entered and electronically signed by YESSICA SPEAR MD 04/27/16 11:23: I have seen and examined the patient and agree with the documentation below. Original Note: Assessment and Plan As the patient remains very short of breath, will initiate aggressive diuresis. If her shortness of breath does not improve, may consider pulmonary evaluation. - Patient Problems (1) Acute on chronic combined systolic and diastolic heart failure Current Visit: Yes Status: Acute (2) Hypotension Current Visit: Yes Status: Acute (3) Chest pain Current Visit: Yes Status: Resolved Qualifiers: Chest pain type: precordial chest pain Qualified Code(s): R07.2 - Precordial pain (4) Cardiomyopathy Current Visit: Yes Status: Chronic (5) CAD (coronary artery disease) Current Visit: Yes Status: Chronic (6) Severe mitral regurgitation Current Visit: Yes Status: Chronic (7) Obesity Current Visit: Yes Status: Chronic Subjective Date of service: 04/27/16 Principal diagnosis: acute on chronic systolic heart failure Interval history: The patient remains very short of breath with minimal exertion. Sinus rhythm on the monitor. Objective Last Vital Signs Temp 98.0 F 04/27/16 10:27 Pulse 80 04/27/16 10:27 Resp 16 04/27/16 10:27 BP 119/90 04/27/16 10:27 Pulse Ox 94 04/27/16 10:27 - Physical Examination General: No Apparent Distress HEENT: Positive: PERRL, Normocephaly, Mucus Membranes Moist Neck: Positive: neck supple, trachea midline Cardiac: Positive: Reg Rate and Rhythm, S1/S2 Lungs: Positive: clear to auscultation Neuro: Positive: Grossly Intact Abdomen: Positive: Soft, Active Bowel Sounds. Negative: Tender Skin: Positive: Clear. Negative: Rash Extremities: Present: normal. Absent: edema - Labs and Meds Comprehensive Metabolic Panel 04/27/16 Range/Units 05:01 Sodium 141 (137-145) mmol/L Potassium 3.8 (3.6-5.0) mmol/L Chloride 103.4 (98-107) mmol/L Carbon Dioxide 23 (22-30) mmol/L BUN 12 (7-17) mg/dL Creatinine 0.7 (0.7-1.2) mg/dL Glucose 92 (65-100) mg/dL Calcium 8.7 (8.4-10.2) mg/dL - Imaging and Cardiology EKG: image reviewed Echo: report reviewed (04/2016: dilated cardiomyopathy, EF 20%, severe MR) Cardiac cath: report reviewed (lt main patent, lad patent, lcx patent, rca distal 80% and ef 15%) - Telemetry EKG Rhythm: Sinus Rhythm - EKG Sinus rhythms and dysrhythmias: sinus rhythm Chamber hypertrophy or enlargement: left ventricular hypertro Repolarization changes or abnormalities: repolarization abn secondary to ventricular hypertrophy
[2016-04-27 14:31] LABS: ISTAT Base Excess 3; ISTAT HCO3 26.8; ISTAT PCO2 39.4 (35-45); ISTAT PO2 94 (80-105); ISTAT SO2 98; ISTAT TCO2 28
--- NOTE | 2016-04-27 14:52 | Progress Note ---
Assessment and Plan Assessment and plan: 1. Newly diagnosed cardiomyopathy with systolic dysfunction with acute exacerbation of systolic heart failure-with persistent dyspnea and hypoxic respiratory failure; cont supplemental oxygen;restart IV lasix; unable to add beta fay and DANIS inhibitor due to low BP 2. Acute hypoxic resp failure - cotn supplemental oxygen; CTA chest neg for PE ; cotn manx as above 3. Hypotension-better; will start lasix; monitor BP 4. CAD with abn stress test- post cardiac catherization-asa; statin; no beta fay due to hypotension 5. DVT prophylaxis-Lovenox History Interval history: f/u newly diagnosed chf Patient seen at the bedside; remains short of breath on minimal exertion; qualified for home oxygen Hospitalist Physical - Constitutional Vitals: Temp Pulse Resp BP Pulse Ox 98.0 F 82 18 126/84 94 04/27/16 14:12 04/27/16 14:12 04/27/16 14:12 04/27/16 14:12 04/27/16 14:12 General appearance: Present: mild distress (on [place] oxygen), well-nourished - EENT Eyes: Present: PERRL, EOM intact. Absent: scleral icterus, conjunctival injection ENT: hearing intact, clear oral mucosa, no oropharyngeal erythema, no poor dentition - Neck Neck: Present: supple. Absent: enlarged thyroid, masses or JVD - Respiratory Respiratory: bilateral: diminished, negative: rales, rhonchi, wheezing - Cardiovascular Rhythm: regular Heart Sounds: Present: S1 & S2. Absent: gallop - Extremities Extremities: no ischemia, pulses intact, pulses symmetrical, No edema Peripheral Pulses: within normal limits - Abdominal General gastrointestinal: soft, non-tender, non-distended - Integumentary Integumentary: Present: clear - Psychiatric Psychiatric: appropriate mood/affect, intact judgment & insight - Neurologic Neurologic: CNII-XII intact, moves all extremities Results - Labs CBC & Chem 7: 04/24/16 05:21 04/27/16 05:01 Labs: Laboratory Last Values WBC 9.5 K/mm3 (4.5-11.0) 04/24/16 05:21 RBC 4.82 M/mm3 (3.65-5.03) 04/24/16 05:21 Hgb 12.5 gm/dl (10.1-14.3) 04/24/16 05:21 Hct 38.4 % (30.3-42.9) 04/24/16 05:21 MCV 80 fl (79-97) 04/24/16 05:21 MCH 26 pg (28-32) L 04/24/16 05:21 MCHC 33 % (30-34) 04/24/16 05:21 RDW 13.8 % (13.2-15.2) 04/24/16 05:21 Plt Count 275 K/mm3 (140-440) 04/24/16 05:21 Lymph % (Auto) 29.4 % (13.4-35.0) 04/24/16 05:21 [place] % (Auto) 6.9 % (0.0-7.3) 04/24/16 05:21 Eos % (Auto) 0.9 % (0.0-4.3) 04/24/16 05:21 Baso % (Auto) 0.3 % (0.0-1.8) 04/24/16 05:21 Lymph # 2.8 K/mm3 (1.2-5.4) 04/24/16 05:21 [place] # 0.7 K/mm3 (0.0-0.8) 04/24/16 05:21 Eos # 0.1 K/mm3 (0.0-0.4) 04/24/16 05:21 Baso # 0.0 K/mm3 (0.0-0.1) 04/24/16 05:21 Seg Neutrophils % 62.5 % (40.0-70.0) 04/24/16 05:21 Seg Neutrophils # 5.9 K/mm3 (1.8-7.7) 04/24/16 05:21 PT 13.0 Sec. (12.2-14.9) 04/25/16 04:54 INR 0.99 (0.87-1.13) 04/25/16 04:54 POC ABG pH 7.440 (7.35-7.45) 04/27/16 12:09 POC ABG pCO2 39.4 (35-45) 04/27/16 12:09 POC ABG pO2 94 (80-105) 04/27/16 12:09 POC ABG HCO3 26.8 04/27/16 12:09 POC ABG Total CO2 28 04/27/16 12:09 POC ABG O2 Sat 98 04/27/16 12:09 POC ABG Base Excess 3 04/27/16 12:09 FiO2 28 % 04/27/16 12:09 Sodium 141 mmol/L (137-145) 04/27/16 05:01 Potassium 3.8 mmol/L (3.6-5.0) 04/27/16 05:01 Chloride 103.4 mmol/L (98-107) 04/27/16 05:01 Carbon Dioxide 23 mmol/L (22-30) 04/27/16 05:01 Anion Gap 18 mmol/L 04/27/16 05:01 BUN 12 mg/dL (7-17) 04/27/16 05:01 Creatinine 0.7 mg/dL (0.7-1.2) 04/27/16 05:01 Estimated GFR > 60 ml/min 04/27/16 05:01 BUN/Creatinine Ratio 17.14 % 04/27/16 05:01 Glucose 92 mg/dL (65-100) 04/27/16 05:01 Calcium 8.7 mg/dL (8.4-10.2) 04/27/16 05:01 Troponin T < 0.010 ng/mL (0.00-0.029) 04/24/16 13:22 NT-Pro-B Natriuret Pep 2210 pg/mL (0-900) H 04/24/16 08:05 Triglycerides 112 mg/dL (2-149) 04/24/16 08:05 Cholesterol 185 mg/dL (50-199) 04/24/16 08:05 LDL Cholesterol Direct 121 mg/dL (50-130) 04/24/16 08:05 HDL Cholesterol 42 mg/dL (40-59) 04/24/16 08:05 Cholesterol/HDL Ratio 4.40 % 04/24/16 08:05
[2016-04-27] MEDS: K-DUR PO SCH ×2 (15:33→21:40)
[2016-04-27] MEDS: LASIX IV SCH ×2 (15:33→18:21)
[2016-04-28] MEDS: LASIX IV SCH ×2 (05:13→18:21)
[2016-04-28] MEDS: ROBITUSSIN PO PRN ×3 (05:27→21:25)
[2016-04-28 08:11] LABS: Anion Gap 21 mmol/L; BUN/Creatinine Ratio 16.25; Blood Urea Nitrogen 13 mg/dL (7-17); Carbon Dioxide 24 mmol/L (22-30); Chloride 100.3 mmol/L (98-107); Glucose 99 mg/dL (65-100); Sodium 141 mmol/L (137-145)
[2016-04-28] MEDS: K-DUR PO SCH ×2 (10:23→21:22)
[2016-04-28] MEDS: ASPIRIN PO SCH (10:23)
[2016-04-28] MEDS: PEPCID PO SCH ×2 (10:23→21:22)
--- NOTE | 2016-04-28 11:58 | Progress Note ---
Assessment and Plan Feels better.Improving.Increase activity.Continue current management. - Patient Problems (1) Acute on chronic combined systolic and diastolic heart failure Current Visit: Yes Status: Acute (2) CAD (coronary artery disease) Current Visit: Yes Status: Chronic (3) Cardiomyopathy Current Visit: Yes Status: Chronic (4) Obesity Current Visit: Yes Status: Chronic (5) Severe mitral regurgitation Current Visit: Yes Status: Chronic Subjective Date of service: 04/28/16 Principal diagnosis: acute on chronic systolic heart failure Interval history: Patint is feeling much better. No chest pain. Dyspnea much improved Objective Vital Signs Temp Pulse Pulse Pulse Resp BP Pulse Ox 04/28/16 11:46 98 04/28/16 10:00 80 81 20 100 04/28/16 09:04 98.4 F 81 20 98/55 100 04/28/16 06:05 98.3 F 81 20 108/60 98 04/28/16 00:51 98.6 F 83 20 96/57 97 04/27/16 22:00 90 04/27/16 20:46 100 04/27/16 20:36 98.5 F 82 20 105/57 98 04/27/16 16:49 97.9 F 79 20 103/65 94 04/27/16 14:12 98.0 F 82 18 126/84 94 - Physical Examination General: No Apparent Distress HEENT: Positive: PERRL, Normocephaly, Mucus Membranes Moist Neck: Positive: neck supple, trachea midline Cardiac: Positive: Regular Rate, Regular Rhythm, Systolic Murmur Lungs: Positive: clear to auscultation Neuro: Positive: Grossly Intact Abdomen: Positive: Soft, Active Bowel Sounds. Negative: Tender Skin: Positive: Clear. Negative: Rash Extremities: Present: normal. Absent: edema - Labs and Meds Comprehensive Metabolic Panel 04/28/16 Range/Units 07:23 Sodium 141 (137-145) mmol/L Potassium 4.0 (3.6-5.0) mmol/L Chloride 100.3 (98-107) mmol/L Carbon Dioxide 24 (22-30) mmol/L BUN 13 (7-17) mg/dL Creatinine 0.8 (0.7-1.2) mg/dL Glucose 99 (65-100) mg/dL Calcium 9.0 (8.4-10.2) mg/dL - Imaging and Cardiology EKG: image reviewed Echo: report reviewed (04/2016: dilated cardiomyopathy, EF 20%, severe MR) Cardiac cath: report reviewed (lt main patent, lad patent, lcx patent, rca distal 80% and ef 15%) - EKG Sinus rhythms and dysrhythmias: sinus rhythm Chamber hypertrophy or enlargement: left ventricular hypertro Repolarization changes or abnormalities: repolarization abn secondary to ventricular hypertrophy
--- NOTE | 2016-04-28 13:11 | Progress Note ---
Assessment and Plan Assessment and plan: 1. Newly diagnosed cardiomyopathy with systolic dysfunction with acute exacerbation of systolic heart failure-with persistent dyspnea and hypoxic respiratory failure- improving; cont supplemental oxygen;cont IV lasix; unable to add beta fay and DANIS inhibitor due to low BP 2. Acute hypoxic resp failure - cotn supplemental oxygen; CTA chest neg for PE ; cotn manx as above 3. Hypotension-better; monitor BP 4. CAD with abn stress test- post cardiac catherization-asa; statin; no beta fay due to hypotension 5. DVT prophylaxis-Lovenox History Interval history: f/u newly diagnosed chf Patient seen at the bedside; shortness of breath is better today; was able to sleep last night for the first time; she took her oxygen off while in bed to see how she felt without it Hospitalist Physical - Constitutional Vitals: Temp Pulse Resp BP Pulse Ox 98.4 F 81 20 98/55 98 04/28/16 09:04 04/28/16 10:00 04/28/16 10:00 04/28/16 09:04 04/28/16 11:46 General appearance: Present: no acute distress (on room), well-nourished - EENT Eyes: Present: PERRL, EOM intact. Absent: scleral icterus, conjunctival injection ENT: hearing intact, clear oral mucosa, no oropharyngeal erythema, no poor dentition - Neck Neck: Present: supple, normal ROM. Absent: enlarged thyroid, masses or JVD - Respiratory Respiratory: bilateral: diminished, negative: rales, rhonchi, wheezing - Cardiovascular Rhythm: regular Heart Sounds: Present: S1 & S2. Absent: gallop - Extremities Extremities: no ischemia, pulses intact, pulses symmetrical Extremity abnormal: edema (1 plus leg) Peripheral Pulses: within normal limits - Abdominal General gastrointestinal: soft, non-tender, non-distended - Integumentary Integumentary: Present: clear - Psychiatric Psychiatric: appropriate mood/affect, intact judgment & insight - Neurologic Neurologic: CNII-XII intact, moves all extremities Results - Labs CBC & Chem 7: 04/24/16 05:21 04/28/16 07:23 Labs: Laboratory Last Values WBC 9.5 K/mm3 (4.5-11.0) 04/24/16 05:21 RBC 4.82 M/mm3 (3.65-5.03) 04/24/16 05:21 Hgb 12.5 gm/dl (10.1-14.3) 04/24/16 05:21 Hct 38.4 % (30.3-42.9) 04/24/16 05:21 MCV 80 fl (79-97) 04/24/16 05:21 MCH 26 pg (28-32) L 04/24/16 05:21 MCHC 33 % (30-34) 04/24/16 05:21 RDW 13.8 % (13.2-15.2) 04/24/16 05:21 Plt Count 275 K/mm3 (140-440) 04/24/16 05:21 Lymph % (Auto) 29.4 % (13.4-35.0) 04/24/16 05:21 [place] % (Auto) 6.9 % (0.0-7.3) 04/24/16 05:21 Eos % (Auto) 0.9 % (0.0-4.3) 04/24/16 05:21 Baso % (Auto) 0.3 % (0.0-1.8) 04/24/16 05:21 Lymph # 2.8 K/mm3 (1.2-5.4) 04/24/16 05:21 [place] # 0.7 K/mm3 (0.0-0.8) 04/24/16 05:21 Eos # 0.1 K/mm3 (0.0-0.4) 04/24/16 05:21 Baso # 0.0 K/mm3 (0.0-0.1) 04/24/16 05:21 Seg Neutrophils % 62.5 % (40.0-70.0) 04/24/16 05:21 Seg Neutrophils # 5.9 K/mm3 (1.8-7.7) 04/24/16 05:21 PT 13.0 Sec. (12.2-14.9) 04/25/16 04:54 INR 0.99 (0.87-1.13) 04/25/16 04:54 POC ABG pH 7.440 (7.35-7.45) 04/27/16 12:09 POC ABG pCO2 39.4 (35-45) 04/27/16 12:09 POC ABG pO2 94 (80-105) 04/27/16 12:09 POC ABG HCO3 26.8 04/27/16 12:09 POC ABG Total CO2 28 04/27/16 12:09 POC ABG O2 Sat 98 04/27/16 12:09 POC ABG Base Excess 3 04/27/16 12:09 FiO2 28 % 04/27/16 12:09 Sodium 141 mmol/L (137-145) 04/28/16 07:23 Potassium 4.0 mmol/L (3.6-5.0) 04/28/16 07:23 Chloride 100.3 mmol/L (98-107) 04/28/16 07:23 Carbon Dioxide 24 mmol/L (22-30) 04/28/16 07:23 Anion Gap 21 mmol/L 04/28/16 07:23 BUN 13 mg/dL (7-17) 04/28/16 07:23 Creatinine 0.8 mg/dL (0.7-1.2) 04/28/16 07:23 Estimated GFR > 60 ml/min 04/28/16 07:23 BUN/Creatinine Ratio 16.25 % 04/28/16 07:23 Glucose 99 mg/dL (65-100) 04/28/16 07:23 Calcium 9.0 mg/dL (8.4-10.2) 04/28/16 07:23 Troponin T < 0.010 ng/mL (0.00-0.029) 04/24/16 13:22 NT-Pro-B Natriuret Pep 2210 pg/mL (0-900) H 04/24/16 08:05 Triglycerides 112 mg/dL (2-149) 04/24/16 08:05 Cholesterol 185 mg/dL (50-199) 04/24/16 08:05 LDL Cholesterol Direct 121 mg/dL (50-130) 04/24/16 08:05 HDL Cholesterol 42 mg/dL (40-59) 04/24/16 08:05 Cholesterol/HDL Ratio 4.40 % 04/24/16 08:05
[2016-04-29] MEDS: LASIX IV SCH ×2 (05:47→19:55)
[2016-04-29] MEDS: ROBITUSSIN PO PRN ×3 (05:47→21:08)
--- NOTE | 2016-04-29 10:50 | Progress Note ---
Assessment and Plan Pt is c/o dyspnea/ Pulse ox 99% CHFimproving gradually. Cont current meds. on IV Lasix. Obtain cxray for further evaluation. - Patient Problems (1) Acute on chronic combined systolic and diastolic heart failure Current Visit: Yes Status: Acute (2) CAD (coronary artery disease) Current Visit: Yes Status: Chronic (3) Cardiomyopathy Current Visit: Yes Status: Chronic (4) Obesity Current Visit: Yes Status: Chronic (5) Severe mitral regurgitation Current Visit: Yes Status: Chronic Subjective Date of service: 04/29/16 Principal diagnosis: acute on chronic systolic heart failure Interval history: Patint is c/o dyspnea. No chest pain Objective Vital Signs Temp Pulse Pulse Resp BP Pulse Ox 04/29/16 10:30 98 04/29/16 08:03 98.0 F 72 20 101/60 97 04/29/16 05:13 98.3 F 84 20 102/58 98 04/29/16 00:00 98.5 F 87 20 98/58 95 04/28/16 22:00 69 04/28/16 21:41 98 04/28/16 20:00 98.4 F 85 20 95/59 98 04/28/16 18:16 97.2 F L 85 20 147/65 95 04/28/16 15:13 97.4 F L 85 20 128/81 95 04/28/16 11:46 98 - Physical Examination General: No Apparent Distress HEENT: Positive: PERRL, Normocephaly, Mucus Membranes Moist Neck: Positive: neck supple, trachea midline Cardiac: Positive: Reg Rate and Rhythm Lungs: Positive: clear to auscultation Neuro: Positive: Grossly Intact Abdomen: Positive: Soft, Active Bowel Sounds. Negative: Tender Skin: Positive: Clear. Negative: Rash Extremities: Present: normal. Absent: edema - Imaging and Cardiology EKG: image reviewed Echo: report reviewed (04/2016: dilated cardiomyopathy, EF 20%, severe MR) Cardiac cath: report reviewed (lt main patent, lad patent, lcx patent, rca distal 80% and ef 15%) - EKG Sinus rhythms and dysrhythmias: sinus rhythm Chamber hypertrophy or enlargement: left ventricular hypertro Repolarization changes or abnormalities: repolarization abn secondary to ventricular hypertrophy
[2016-04-29] MEDS: ASPIRIN PO SCH (12:19)
[2016-04-29] MEDS: PEPCID PO SCH ×2 (12:19→21:09)
[2016-04-29] MEDS: K-DUR PO SCH ×2 (12:30→21:09)
--- NOTE | 2016-04-29 13:24 | XRay Report ---
CHEST XRAY, 2 VIEWS: History: Shortness of breath, followup CHF. Findings: Two views of the chest demonstrate the mediastinal contour to be of normal size and shape. The heart is enlarged. The lungs are clear and fully expanded, and the soft tissues and bony structures are normal. Trace left pleural effusion has resolved since 04/24/16. IMPRESSION: Cardiomegaly. Lungs clear.
--- NOTE | 2016-04-29 14:23 | Progress Note ---
Assessment and Plan Assessment and plan: 1. Newly diagnosed cardiomyopathy with systolic dysfunction with acute exacerbation of systolic heart failure with hypoxic respiratory failure- improving with IV lasix; cont supplemental oxygen;cont IV lasix; unable to add beta fay and DANIS inhibitor due to low BP 2. Acute hypoxic resp failure - cotn 3. CAD with abn stress test- post cardiac catherization-asa; statin; no beta fay due to hypotension 4. DVT prophylaxis-Lovenox History Interval history: f/u newly diagnosed chf Patient seen at the bedside; shortness continues to improve Hospitalist Physical - Constitutional Vitals: Temp Pulse Resp BP Pulse Ox 97.7 F 86 20 115/70 96 04/29/16 11:30 04/29/16 11:30 04/29/16 11:30 04/29/16 11:30 04/29/16 11:30 General appearance: Present: no acute distress (on [place] oxygen), well-nourished - EENT Eyes: Present: PERRL, EOM intact. Absent: scleral icterus, conjunctival injection ENT: hearing intact, clear oral mucosa, no oropharyngeal erythema, no poor dentition - Neck Neck: Present: supple, normal ROM. Absent: enlarged thyroid, masses or JVD - Respiratory Respiratory effort: normal Respiratory: bilateral: diminished, negative: rales, rhonchi, wheezing - Cardiovascular Rhythm: regular Heart Sounds: Present: S1 & S2. Absent: gallop - Extremities Extremities: no ischemia, pulses intact, pulses symmetrical Extremity abnormal: edema (1 plus leg) Peripheral Pulses: within normal limits - Abdominal General gastrointestinal: soft, non-tender, non-distended, normal bowel sounds - Integumentary Integumentary: Present: clear - Psychiatric Psychiatric: appropriate mood/affect, intact judgment & insight, cooperative - Neurologic Neurologic: CNII-XII intact, moves all extremities Results - Labs CBC & Chem 7: 04/24/16 05:21 04/28/16 07:23 Labs: Laboratory Last Values WBC 9.5 K/mm3 (4.5-11.0) 04/24/16 05:21 RBC 4.82 M/mm3 (3.65-5.03) 04/24/16 05:21 Hgb 12.5 gm/dl (10.1-14.3) 04/24/16 05:21 Hct 38.4 % (30.3-42.9) 04/24/16 05:21 MCV 80 fl (79-97) 04/24/16 05:21 MCH 26 pg (28-32) L 04/24/16 05:21 MCHC 33 % (30-34) 04/24/16 05:21 RDW 13.8 % (13.2-15.2) 04/24/16 05:21 Plt Count 275 K/mm3 (140-440) 04/24/16 05:21 Lymph % (Auto) 29.4 % (13.4-35.0) 04/24/16 05:21 [place] % (Auto) 6.9 % (0.0-7.3) 04/24/16 05:21 Eos % (Auto) 0.9 % (0.0-4.3) 04/24/16 05:21 Baso % (Auto) 0.3 % (0.0-1.8) 04/24/16 05:21 Lymph # 2.8 K/mm3 (1.2-5.4) 04/24/16 05:21 [place] # 0.7 K/mm3 (0.0-0.8) 04/24/16 05:21 Eos # 0.1 K/mm3 (0.0-0.4) 04/24/16 05:21 Baso # 0.0 K/mm3 (0.0-0.1) 04/24/16 05:21 Seg Neutrophils % 62.5 % (40.0-70.0) 04/24/16 05:21 Seg Neutrophils # 5.9 K/mm3 (1.8-7.7) 04/24/16 05:21 PT 13.0 Sec. (12.2-14.9) 04/25/16 04:54 INR 0.99 (0.87-1.13) 04/25/16 04:54 POC ABG pH 7.440 (7.35-7.45) 04/27/16 12:09 POC ABG pCO2 39.4 (35-45) 04/27/16 12:09 POC ABG pO2 94 (80-105) 04/27/16 12:09 POC ABG HCO3 26.8 04/27/16 12:09 POC ABG Total CO2 28 04/27/16 12:09 POC ABG O2 Sat 98 04/27/16 12:09 POC ABG Base Excess 3 04/27/16 12:09 FiO2 28 % 04/27/16 12:09 Sodium 141 mmol/L (137-145) 04/28/16 07:23 Potassium 4.0 mmol/L (3.6-5.0) 04/28/16 07:23 Chloride 100.3 mmol/L (98-107) 04/28/16 07:23 Carbon Dioxide 24 mmol/L (22-30) 04/28/16 07:23 Anion Gap 21 mmol/L 04/28/16 07:23 BUN 13 mg/dL (7-17) 04/28/16 07:23 Creatinine 0.8 mg/dL (0.7-1.2) 04/28/16 07:23 Estimated GFR > 60 ml/min 04/28/16 07:23 BUN/Creatinine Ratio 16.25 % 04/28/16 07:23 Glucose 99 mg/dL (65-100) 04/28/16 07:23 Calcium 9.0 mg/dL (8.4-10.2) 04/28/16 07:23 Troponin T < 0.010 ng/mL (0.00-0.029) 04/24/16 13:22 NT-Pro-B Natriuret Pep 2210 pg/mL (0-900) H 04/24/16 08:05 Triglycerides 112 mg/dL (2-149) 04/24/16 08:05 Cholesterol 185 mg/dL (50-199) 04/24/16 08:05 LDL Cholesterol Direct 121 mg/dL (50-130) 04/24/16 08:05 HDL Cholesterol 42 mg/dL (40-59) 04/24/16 08:05 Cholesterol/HDL Ratio 4.40 % 04/24/16 08:05 - Imaging and Cardiology Chest x-ray: report reviewed (cardiomegaly; lungs clear)
[2016-04-30] MEDS: ROBITUSSIN PO PRN (05:29)
[2016-04-30] MEDS: LASIX IV SCH (05:29)
[2016-04-30 06:06] LABS: BUN/Creatinine Ratio 21.25; Blood Urea Nitrogen 17 mg/dL (7-17); Calcium 9.1 mg/dL (8.4-10.2); Carbon Dioxide 26 mmol/L (22-30); Chloride 98.3 mmol/L (98-107); Glucose 100 mg/dL (65-100); Potassium 4.2 mmol/L (3.6-5.0); Sodium 137 mmol/L (137-145)
[2016-04-30 06:12] LABS: Anion Gap 17 mmol/L
[2016-04-30] MEDS: ASPIRIN PO SCH (09:24)
[2016-04-30] MEDS: K-DUR PO SCH (09:24)
[2016-04-30] MEDS: PEPCID PO SCH (09:26)
--- NOTE | 2016-04-30 09:27 | Discharge Summary ---
Providers - Providers Date of Admission: 04/24/16 08:33 Date of discharge: 04/30/16 Attending physician: KIT MENDOZA 04/24/16 Consult to Cardiac Rehabilitation [CONS] Routine Reason For Exam: Phase I 04/24/16 08:57 Consult to Physician [CONS] Routine Consulting Provider: JANET [facility] SPECIALISTSRAMA Reason For Exam: chest pain Place consult to:: [facility] Notified:: tammy 04/25/16 09:08 Consult to Cardiac Rehabilitation [CONS] Routine Reason For Exam: Cardiac Rehab Evaluation 04/25/16 12:34 Consult to Case Management [CONS] Routine Services Needed at Discharge: Other Home O2 Notified:: Case Management Was contact made?: Yes If yes, spoke with:: Yana-case management Time called:: 12:55 Comment:: eval for home oxygen Primary care physician: [employer]PER[employer] Hospitalization Reason for admission: shortness of breath Condition: Stable Pertinent studies: CTA of the chest-tiny left pleural effusion. Gait shows distention of the upper half of the esophagus of uncertain etiology. Small cyst in the upper pole of the left kidney will get AXR Cardiac catheterization-severe LV dysfunction. Ejection fraction 20%. LV dysfunction is out of proportion to coronary artery disease. Left main, LAD and circumflex, OM1 and OM 2 are patent. non ischemic cardiomyopathy echocardiogram-ejection fraction 20%. Mild concentric LVH. Global left ventricular systolic function is severely decreased. Diastolic pattern is consistent with pseudonormalization Hospital course: Miss Aguero is a 60-year-old F, [place] female who presented to the emergency room with worsening shortness of breath. She was diagnosed as newly diagnosed congestive heart failure. She had echocardiogram done which showed systolic and diastolic congestive heart failure. She was seen by the exercise teacher and had a cardiac catheterization done. She was started on IV Lasix for diuresis. Of note she had episodes of hypotension with introduction of DANIS inhibitor and beta fay and therefore these were not continued during her stay or prescribed upon discharge. condition at discharge-stable 31 minutes on discharge Disposition: DISCHARGED TO HOME OR SELFCARE - Discharge Diagnoses (1) Acute on chronic combined systolic and diastolic heart failure Status: Acute (2) Hypotension Status: Acute (3) CAD (coronary artery disease) Status: Chronic (4) Cardiomyopathy Status: Chronic (5) Severe mitral regurgitation Status: Chronic Core Measure Documentation - Palliative Care Palliative Care/ Comfort Measures: Not Applicable - Core Measures Any of the following diagnoses?: heart failure, none - Heart Failure Discharge Requirements DANIS/ARB for LVSD if EF <40%: No Reason for no DANIS/ARB: Hypotension Beta fay at discharge: No Reason for no beta fay on DC: Hypotension Exam - Constitutional Vitals: Temp Pulse Resp BP Pulse Ox 98.4 F 84 20 131/80 98 04/30/16 07:30 04/30/16 07:30 04/30/16 07:30 04/30/16 07:30 04/30/16 07:30 General appearance: Present: no acute distress, well-nourished - EENT Eyes: Present: PERRL, EOM intact. Absent: scleral icterus, conjunctival injection ENT: hearing intact, clear oral mucosa, no oropharyngeal erythema, no poor dentition - Neck Neck: Present: supple, normal ROM. Absent: enlarged thyroid, masses or JVD - Respiratory Respiratory effort: normal Respiratory: negative: diminished, rales, rhonchi, wheezing - Cardiovascular Rhythm: regular Heart Sounds: Present: S1 & S2. Absent: gallop - Extremities Extremities: no ischemia, pulses intact, pulses symmetrical, No edema Peripheral Pulses: within normal limits - Abdominal General gastrointestinal: Present: soft, non-tender, non-distended, normal bowel sounds Female genitourinary: Present: deferred - Rectal Rectal Exam: deferred - Integumentary Integumentary: Present: clear - Musculoskeletal Musculoskeletal: strength equal bilaterally - Psychiatric Psychiatric: appropriate mood/affect, intact judgment & insight, cooperative - Neurologic Neurologic: CNII-XII intact, moves all extremities Plan Activity: advance as tolerated Diet: low salt Special Instructions: home oxygen via ([place]) Follow up with: PRIMARY MD ANA [Primary Care Provider] - 3-5 Days YESSICA SPEAR MD [Staff Physician] - 05/04/16 Prescriptions: Aspirin [Aspirin TAB] 325 mg PO QDAY #30 tablet Atorvastatin Calcium [Lipitor] 40 mg PO QHS #30 tab Furosemide [Lasix TAB] 40 mg PO QDAY #30 tablet
--- NOTE | 2016-04-30 09:48 | Progress Note ---
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 Okay to d/c home from a cardiac standpoint on lasix 40mg PO daily. No beta fay or ACEI/ARB due to low blood pressure. Follow up appointment with Dr. Reynaga in the [place] office on Saturday, 05/04 at 2:45 pm. The patient has been seen in conjunction with Dr. King who agrees with the assessment and plan of care. - Patient Problems (1) Acute on chronic combined systolic and diastolic heart failure Current Visit: Yes Status: Acute (2) Hypotension Current Visit: Yes Status: Acute (3) Chest pain Current Visit: Yes Status: Resolved Qualifiers: Qualified Code(s): R07.2 - Precordial pain (4) Cardiomyopathy Current Visit: Yes Status: Chronic (5) CAD (coronary artery disease) Current Visit: Yes Status: Chronic (6) Severe mitral regurgitation Current Visit: Yes Status: Chronic (7) Obesity Current Visit: Yes Status: Chronic Subjective Date of service: 04/30/16 Principal diagnosis: acute on chronic systolic heart failure Interval history: The patient is resting comfortably in bed. She is breathing much better today. No complaints. Sinus rhythm on the monitor. Objective Last Vital Signs Temp 98.4 F 04/30/16 07:30 Pulse 84 04/30/16 07:30 Resp 20 04/30/16 07:30 BP 131/80 04/30/16 07:30 Pulse Ox 98 04/30/16 09:29 - Physical Examination General: No Apparent Distress HEENT: Positive: PERRL, Normocephaly, Mucus Membranes Moist Neck: Positive: neck supple, trachea midline Cardiac: Positive: Reg Rate and Rhythm, S1/S2 Lungs: Positive: clear to auscultation Neuro: Positive: Grossly Intact Abdomen: Positive: Soft, Active Bowel Sounds. Negative: Tender Skin: Positive: Clear. Negative: Rash Extremities: Present: normal. Absent: edema - Labs and Meds Comprehensive Metabolic Panel 04/30/16 Range/Units 05:01 Sodium 137 (137-145) mmol/L Potassium 4.2 (3.6-5.0) mmol/L Chloride 98.3 (98-107) mmol/L Carbon Dioxide 26 (22-30) mmol/L BUN 17 (7-17) mg/dL Creatinine 0.8 (0.7-1.2) mg/dL Glucose 100 (65-100) mg/dL Calcium 9.1 (8.4-10.2) mg/dL - Imaging and Cardiology EKG: image reviewed Echo: report reviewed (04/2016: dilated cardiomyopathy, EF 20%, severe MR) Cardiac cath: report reviewed (lt main patent, lad patent, lcx patent, rca distal 80% and ef 15%) - Telemetry EKG Rhythm: Sinus Rhythm - EKG Sinus rhythms and dysrhythmias: sinus rhythm Chamber hypertrophy or enlargement: left ventricular hypertro Repolarization changes or abnormalities: repolarization abn secondary to ventricular hypertrophy
[2016-04-30 17:14] VITALS: BP 137/83
== END 2016-04-30 17:21 | disposition home or self-care (01) | DRG 286 ==
LOC: ED 04:32 → 4A 08:33
PROVIDERS: ADMIT Hospitalist; ATTEND Hospitalist
PROC: 4A023N7 Measurement of Cardiac Sampling and Pressure, Left Heart, Percutaneous Approach (ICD-10-PCS; principal; 2016-04-25)
PROC: B2111ZZ Fluoroscopy of Multiple Coronary Arteries using Low Osmolar Contrast (ICD-10-PCS; 2016-04-25)
PROC: B2151ZZ Fluoroscopy of Left Heart using Low Osmolar Contrast (ICD-10-PCS; 2016-04-25)
PROC: 3E0234Z Introduction of Serum, Toxoid and Vaccine into Muscle, Percutaneous Approach (ICD-10-PCS; 2016-04-26)
DX: I11.0 Hypertensive heart disease with heart failure (principal); J96.01 Acute respiratory failure with hypoxia; I25.10 Atherosclerotic heart disease of native coronary artery without angina pectoris; E66.9 Obesity, unspecified; I50.43 Acute on chronic combined systolic (congestive) and diastolic (congestive) heart failure; I42.9 Cardiomyopathy, unspecified; I34.0 Nonrheumatic mitral (valve) insufficiency; I95.9 Hypotension, unspecified; N28.1 Cyst of kidney, acquired; Z68.36 Body mass index [BMI] 36.0-36.9, adult; Z23 Encounter for immunization; Z88.8 Allergy status to other drugs, medicaments and biological substances; Z90.710 Acquired absence of both cervix and uterus; Z98.890 Other specified postprocedural states; Z86.718 Personal history of other venous thrombosis and embolism; Z82.49 Family history of ischemic heart disease and other diseases of the circulatory system; Z83.3 Family history of diabetes mellitus
CPT/HCPCS: 36415; 36600; 71010; 71020; 71260; 74000; 78452; 80048; 80061; 82803; 83880; 84484; 85025; 85610; 90670; 90686; 93005; 93010; 93017; 93306; 93458; 94760; 96374; 96375; A9270-GY; A9502; C1894; J1644; J1940; J2250; J2270; J2405; J2785; J3010; J7040; Q9967